=== PATIENT | male | born 1980 | race American Indian/Alaskan Native ===

== ENCOUNTER 2019-02-09 15:20 | Emergency (ER) | payer OTHER ==
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
[2019-02-09 17:15] VITALS: BP 126/66
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
== END 2019-02-09 18:06 | disposition home or self-care (01) ==
LOC: ED 15:20
DX: M25.512 Pain in left shoulder (principal); M54.5 Low back pain; Z79.899 Other long term (current) drug therapy; V49.49XA Driver injured in collision with other motor vehicles in traffic accident, initial encounter; Y93.89 Activity, other specified; Y92.410 Unspecified street and highway as the place of occurrence of the external cause; Y99.8 Other external cause status
CPT/HCPCS: 72100